=== PATIENT | male | born 1955 | race Caucasian/White ===

== ENCOUNTER → 2018-09-07 | Day surgery (SDC) | payer MEDICAID, OTHER ==
[~2018-09-07] MED LIST: FLUMAZENIL 0.5 MG/5 ML MDV IVP PRN; IOPAMIDOL (ISOVUE-300) 100 ML BTL ONE; LIDOCAINE 1% 300 MG/30 ML SDV ONE; MEPERIDINE 25 MG/ML SYR IVP PRN; MIDAZOLAM 2 MG/2 ML VIAL IVP PRN; NALOXONE HCL 0.4 MG/ML INJ IVP PRN; NS 1,000 ML IV ONE; ONDANSETRON 4 MG/2 ML VIAL IVP PRN; OXYCODONE/APAP 5/325 TAB PO PRN; fentaNYL 100 MCG/2 ML INJ IVP PRN; hydrALAZINE 20 MG/ML VIAL IVP ONE; hydrALAZINE 20 MG/ML VIAL ONE
[2018-09-07 09:42] LABS: INR 1.14 (0.83-1.16); PROTIME(PATIENT) 14.8 SEC (12.0-15.0)
--- NOTE | 2018-09-07 11:19 | PDPROPOC ---
Sedation Plan of Care Sedation Plan of Care: vital signs stable, mental status noted, patient educated of risks, benefits, alternatives, patient can tolerate sedation ASA Classification: ASA 2 Planned drugs: fentanyl, midazolam Mallampati Score: Class 2 Mallampati Reference Image: Patient passed 3-3-2 rule?: Yes
--- NOTE | 2018-09-07 11:19 | PDRADPRE ---
Radiology History & Physical Indication for procedure: cancer (Plan for Y90 mapping. Extensive discussion on renal failure following contrast administration. Patient understands risk of dialysis, and we will hydrate and minimze contrast dose as much as possible. Patient agrees benefits outweigh risks of nephrotoxic contrast.) Home medications: Aspirin [Aspirin 81mg (*)] 81 mg PO DAILY 05/15/15 [Last Taken 09/03/18] Metoprolol Tartrate [Lopressor 25 mg (*)] 12.5 mg PO BID 05/15/15 [Last Taken ] Metformin HCl [Metformin 1000 mg] 1,000 mg PO 11/19/15 [Last Taken 09/05/18] Amlodipine Besylate 10 mg DAILY 09/07/18 [Last Taken 09/05/18] traMADol 25 mg PO PRN PRN 09/07/18 [Last Taken 09/07/18] Allergies/Adverse Reactions: No Known Allergies Allergy (Unverified 09/07/18 09:08) Mental status: A&Ox3 Heart exam: regular rate and rhythm Lungs exam: clear to auscultation Mallampati Score: Class 2
--- NOTE | 2018-09-07 12:51 | PDRADPN ---
Radiology Procedure Note Date of Procedure: 09/07/18 Radiologist: Martin Farmer Anesthesia: IV Sedation Pre-op Diagnosis: mCRC Post-op Diagnosis: mCRC Indication: mCRC liver dominant metastases Procedure: Y90 mapping Finding(s): Coil embolization GDA covering right gastric artery origin. Minimal contrast used (less than 20 mL). Please see separately dictated radiology report for further details. Inf/Abcess present in the surg proc area at time of surgery?: No
[2018-09-07 12:57] VITALS: BP 147/87
== END ==
LOC: FIMAGING 08:24
PROVIDERS: ATTEND Radiology Vascular & Interventional Radiology
DX: C18.9 Malignant neoplasm of colon, unspecified (principal); C78.7 Secondary malignant neoplasm of liver and intrahepatic bile duct
CPT/HCPCS: 36247; 37243; 75726; 76937; 78201; 99152; 99153; A9540; C1769; C1760; J0360; J1642; J1644; J2250; J2310; J3010; Q9967

== ENCOUNTER → 2018-09-21 | Day surgery (SDC) | payer MEDICAID, OTHER ==
[~2018-09-21] MED LIST changes: +D5W 250 ML BAG IV ONE; +GLUCAGON HCL 1 MG VIAL IVP PRN; -LIDOCAINE 1% 300 MG/30 ML SDV ONE; -ONDANSETRON 4 MG/2 ML VIAL IVP PRN; -OXYCODONE/APAP 5/325 TAB PO PRN; +PANTOPRAZOLE SODIUM 40 MG VIAL IVP ONE; -hydrALAZINE 20 MG/ML VIAL IVP ONE; -hydrALAZINE 20 MG/ML VIAL ONE; +methylPREDNISolone SOD SUCC 125 MG/2 ML VIAL IVP ONE
[2018-09-21 08:08] VITALS: BP 141/79
[2018-09-21 08:42] LABS: INR 1.13 (0.83-1.16); PROTIME(PATIENT) 14.7 SEC (12.0-15.0)
--- NOTE | 2018-09-21 09:03 | PDRADPRE ---
Radiology History & Physical Indication for procedure: cancer (mCRC Y90 right lobe; Awaiting labs prior to procedure to ensure adequate liver function) Home medications: Aspirin [Aspirin 81mg (*)] 81 mg PO DAILY 05/15/15 [Last Taken 09/03/18] Metoprolol Tartrate [Lopressor 25 mg (*)] 12.5 mg PO BID 05/15/15 [Last Taken ] Metformin HCl [Metformin 1000 mg] 1,000 mg PO 11/19/15 [Last Taken 09/05/18] Amlodipine Besylate 10 mg DAILY 09/07/18 [Last Taken 09/21/18] traMADol 25 mg PO PRN PRN 09/07/18 [Last Taken 09/16/18] Allergies/Adverse Reactions: No Known Allergies Allergy (Verified 09/21/18 08:08) Mental status: A&Ox3 Heart exam: regular rate and rhythm Lungs exam: clear to auscultation Mallampati Score: Class 2
--- NOTE | 2018-09-28 16:52 | PDRADPN ---
Radiology Procedure Note Date of Procedure: 09/28/18 Radiologist: Martin Farmer Anesthesia: Other (Specify) (NONE) Pre-op Diagnosis: mCRC Post-op Diagnosis: mCRC Indication: mCRC; liver mets Procedure: Evaluation of the vascular system was performed utilizing NASCET criteria. Finding(s): Evaluation of the vascular system was performed utilizing NASCET criteria. Inf/Abcess present in the surg proc area at time of surgery?: No
== END ==
LOC: FIMAGING 07:24
PROVIDERS: ATTEND Radiology Vascular & Interventional Radiology
DX: C18.9 Malignant neoplasm of colon, unspecified (principal); C78.7 Secondary malignant neoplasm of liver and intrahepatic bile duct; Z53.09 Procedure and treatment not carried out because of other contraindication
CPT/HCPCS: J1200; J1642; J1644; J2250; J2930; J3010; Q9967

== ENCOUNTER 2018-09-22 21:43 | Inpatient (IN) | payer MEDICAID ==
[2018-09-22] MEDS ORDERED: NS 1,000 ML IV ONE (22:20)
[2018-09-22] MEDS ORDERED: HYDROmorphONE/DILAUDID 2 MG/ML INJ IVP ONE (22:20)
[2018-09-22] MEDS ORDERED: ONDANSETRON 4 MG/2 ML VIAL IVP ONE (22:20)
--- NOTE | 2018-09-22 22:22 | EDPHY ---
H & P Smoking Status: Never smoked Time Seen by Provider: 09/22/18 22:05 HPI/ROS: CHIEF COMPLAINT: Abdominal pain HISTORY OF PRESENT ILLNESS: 63-year-old man with history of rectal cancer and liver mets presents with worsening abdominal pain since this morning. He states it is generalized, worse since 9:00 a.m., associated with severe nausea. He took 750 mg oral tramadol at home without relief. No diarrhea and no fever or chills. No urinary symptoms. REVIEW OF SYSTEMS: Eye: no change in vision ENT: no sore throat Cardiac: no chest pain or syncope Pulmonary: no cough or SOB Abdomen: HPI Musculoskeletal: no back pain Skin: no rash Neuro: no headache Constitutional: no fever : no urinary symptoms Not sleeping well. A comprehensive 10 point review of systems is otherwise negative aside from elements mentioned in the history of present illness. PAST MEDICAL HISTORY: Includes rectal cancer with liver Mets, right knee replacement, diabetes, IgA nephropathy with baseline creatinine around 3 Social history: Here with his family including daughter and General Appearance: Alert and conversant, cooperative. Eyes: Scleral icterus ENT, Mouth: Normal mucous membranes. Respiratory: Normal respiratory effort, breath sounds equal, lungs are clear to auscultation. Cardiovascular: Regular rate and rhythm. Gastrointestinal: Generalized abdominal tenderness especially in the epigastrium and right upper quadrant without rebound or guarding. Neurological: Alert, face symmetric, normal motor and sensory in extremities. Skin: Warm and dry, no rashes. Musculoskeletal: No peripheral edema. Psychiatric: Not agitated. Emergency Department course/MDM: Dilaudid 1 mg IV and Zofran 4 mg IV. Labs to include CBC chemistry LFTs and lipase. Protime as well. CT scanning without IV contrast because of chronically elevated creatinine. Will require admission. Differential considered including but not limited to hepatitis, pain from cancer , bacterial peritonitis with ascites, pancreatitis, bowel obstruction. 2305: CT per Dr. Cueva shows liver Mets, minimal peritoneal fluid, unlikely to be SBP, no perforation or bowel obstruction. Discussed with admitting hospitalist, signed out to Dr. Jacobson with labs pending. Patient much better after pain medication. WBC noted, no dilated ducts on CT, likely reactive given elevated lipase. (Renetta Norton) Constitutional: Initial Vital Signs Temperature (C) 36.4 C 09/22/18 21:50 Heart Rate 78 09/22/18 21:50 Respiratory Rate 18 09/22/18 21:50 Blood Pressure 145/79 H 09/22/18 21:50 O2 Sat (%) 98 09/22/18 21:50 O2 Delivery Mode Room Air Allergies/Adverse Reactions: capecitabine [From Xeloda] Allergy (Verified 09/22/18 21:48) Home Medications: Medication Instructions Recorded Metoprolol Tartrate [Lopressor 25 12.5 mg PO BID 05/15/15 mg (*)] Metformin HCl [Metformin 1000 mg] 1,000 mg PO 11/19/15 Amlodipine Besylate 10 mg DAILY 09/07/18 traMADol 25 mg PO PRN PRN 09/07/18 Medical Decision Making - Diagnostics Imaging: Discussed imaging studies w/ needle grader Radiologist Consult/Admit Bed Type: [facility] - Diagnostics Imaging Results: Imaging Impressions Abdomen/Pelvis CT 09/22/18 22:20 Impression: 1. Diffuse hepatic metastasis throughout the right and left lobes of the liver. 2. Minimal ascites in the upper quadrants and pelvis, insufficient for paracentesis. 3. Constipation without evidence of bowel obstruction, pneumoperitoneum, or focal abscess. Findings and recommendations discussed with Emergency Department physician, RENETTA NORTON at 23:00 hour, 09/22/2018. Final report concurs with initial preliminary interpretation. Attention: This CT examination is specifically designed to evaluate patients who are clinically suspected of having acute obstructive uropathy. This examination does not use radiographic contrast, and as such, provides only a limited evaluation of the abdomen, pelvis and retroperitoneum. If there is further clinical suspicion for pathological conditions other than obstructive uropathy, a complete CT evaluation of the abdomen and pelvis utilizing intravenous, oral, and rectal contrast should be considered. Differential Diagnosis: Differential considered including but not limited to pancreatitis, hepatitis, bowel obstruction, bacterial peritonitis with ascites (Renetta Norton) Other Provider: [address] Norton pending laboratory evaluation results. Patient labs noted by Dr. Mccarty. Patient be admitted. (Andrey Jacobson) - Data Points Laboratory Results: Laboratory Results 09/22/18 22:35 09/22/18 22:35 09/22/18 09/22/18 09/22/18 22:35 22:35 22:35 WBC 17.85 10^3/uL H 10^3/uL (3.80-9.50) RBC 2.43 10^6/uL L 10^6/uL (4.40-6.38) Hgb 7.6 g/dL L g/dL (13.7-17.5) Hct 23.2 % L % (40.0-51.0) MCV 95.5 fL fL (81.5-99.8) MCH 31.3 pg pg (27.9-34.1) MCHC 32.8 g/dL g/dL (32.4-36.7) RDW 18.2 % H % (11.5-15.2) Plt Count 298 10^3/uL 10^3/uL (150-400) MPV 10.5 fL fL (8.7-11.7) Neut % (Auto) 89.5 % H % (39.3-74.2) Lymph % (Auto) 1.7 % L % (15.0-45.0) Lee % (Auto) 7.8 % % (4.5-13.0) Eos % (Auto) 0.1 % L % (0.6-7.6) Baso % (Auto) 0.1 % L % (0.3-1.7) Nucleat RBC Rel Count 0.0 % % (0.0-0.2) Absolute Neuts (auto) 15.98 10^3/uL H 10^3/uL (1.70-6.50) Absolute Lymphs (auto) 0.31 10^3/uL L 10^3/uL (1.00-3.00) Absolute Monos (auto) 1.39 10^3/uL H 10^3/uL (0.30-0.80) Absolute Eos (auto) 0.01 10^3/uL L 10^3/uL (0.03-0.40) Absolute Basos (auto) 0.01 10^3/uL L 10^3/uL (0.02-0.10) Absolute Nucleated RBC 0.00 10^3/uL 10^3/uL (0-0.01) Immature Gran % 0.8 % % (0.0-1.1) Seg Neutrophils % 96.0 % % Band Neutrophils % 0.0 % % Lymphocytes % 1.0 % % Monocytes % 3.0 % % Eosinophils % 0.0 % % Basophils % 0.0 % % Metamyelocytes % 0.0 % % Myelocytes % 0.0 % % Promyelocytes % 0.0 % % Blast Cells % 0.0 % % Immature Gran # 0.15 10^3/uL H 10^3/uL (0.00-0.10) Absolute Seg Neuts 17.14 10^3/uL H 10^3/uL (1.70-6.50) Absolute Band Neuts 0.00 10^3/uL 10^3/uL (0.00-0.70) Absolute Lymphocytes 0.18 10^3/uL L 10^3/uL (1.00-3.00) Absolute Monocytes 0.54 10^3/uL 10^3/uL (0.30-0.80) Absolute Eosinophils 0.00 10^3/uL L 10^3/uL (0.03-0.40) Absolute Basophils 0.00 10^3/uL L 10^3/uL (0.02-0.10) Absolute Metamyelocyte 0.00 10^3/mL 10^3/mL (0.00-0.00) Absolute Myelocytes 0.00 10^3/mL 10^3/mL (0.00-0.00) Absolute Promyelocytes 0.00 10^3/uL 10^3/uL (0.00-0.00) Absolute Plasma Cells 0.00 10^3/uL 10^3/uL (0.00-0.00) Nucleated RBCs 0 /100 WBC /100 WBC (0-0) Absolute Blast Cells 0.00 10^3/uL 10^3/uL (0.00-0.00) Plasma Cells % 0.0 % % Platelet Estimate ADEQUATE (ADEQ) Oval Macrocytes 3+ H PT 14.9 SEC SEC (12.0-15.0) INR 1.15 (0.83-1.16) APTT 29.5 SEC SEC (23.0-38.0) Sodium 134 mEq/L L mEq/L (135-145) Potassium 4.7 mEq/L mEq/L (3.3-5.0) Chloride 104 mEq/L mEq/L (97-110) Carbon Dioxide 15 mEq/l L mEq/l (22-31) Anion Gap 15 mEq/L H mEq/L (6-14) BUN 60 mg/dL H mg/dL (7-23) Creatinine 3.6 mg/dL H mg/dL (0.7-1.3) Estimated GFR 17 Glucose 115 mg/dL H mg/dL (70-100) Calcium 8.3 mg/dL L mg/dL (8.5-10.4) Total Bilirubin 6.5 mg/dL H mg/dL (0.1-1.4) Conjugated Bilirubin 5.8 mg/dL H mg/dL (0.0-0.5) Unconjugated Bilirubin 0.7 mg/dL mg/dL (0.0-1.1) AST 160 IU/L H IU/L (17-59) ALT 78 IU/L H IU/L (21-72) Alkaline Phosphatase 1089 IU/L H IU/L (38-126) Total Protein 6.5 g/dL g/dL (6.3-8.2) Albumin 3.0 g/dL L g/dL (3.5-5.0) Lipase 6720 IU/L H IU/L (23-300) Medications Given: Sodium Chloride (Ns) 1,000 mls @ 100 mls/hr IV CONT MARY Stop: 03/21/19 23:44 Last Admin: 09/23/18 02:18 Dose: 1,000 mls Discontinued Medications Hydromorphone HCl (Dilaudid) 1 mg IVP EDNOW ONE Stop: 09/22/18 22:21 Last Admin: 09/22/18 22:44 Dose: 1 mg Sodium Chloride (Ns) 1,000 mls @ 0 mls/hr IV EDNOW ONE; Wide Open PRN Reason: Protocol Stop: 09/22/18 22:21 Last Admin: 09/22/18 22:42 Dose: 1,000 mls Ondansetron HCl (Zofran) 4 mg IVP EDNOW ONE Stop: 09/22/18 22:21 Last Admin: 09/22/18 22:42 Dose: 4 mg Departure - Departure Disposition: [facility] Inpatient Acute Clinical Impression: Abdominal pain, Pancreatitis Condition: Good
[2018-09-22 22:42] LABS: PLATELET COUNT 298 10^3/uL (150-400)
[2018-09-22 23:20] LABS: INR 1.15 (0.83-1.16); PROTIME(PATIENT) 14.9 SEC (12.0-15.0)
[2018-09-22] MEDS ORDERED: ONDANSETRON DISINTEGRATING 4 MG TAB PO PRN (23:36)
[2018-09-22] MEDS ORDERED: ACETAMINOPHEN 325 MG TAB PO PRN (23:36)
[2018-09-22] MEDS ORDERED: ONDANSETRON 4 MG/2 ML VIAL IVP PRN (23:36)
[2018-09-23] MEDS ORDERED: HYDROmorphONE/DILAUDID 1 MG/ML INJ IVP PRN (00:06)
--- NOTE | 2018-09-23 00:56 | PDGENHP ---
History and Physical - Chief Complaint Abdominal pain - History of Present Illness 63 yo M w/ hx of metastatic rectal CA, CAD, HTN, and CKD presents with abdominal pain. The patient developed severe abdominal pain today. He describes this as diffuse but mostly along the lower quadrants. He has been having some soft, frequent stools as well. These have been yellowish in color. He was scheduled for radiation bead placement to liver metastases yesterday but the procedure was aborted due to elevated bilirubin. This is a new problem for him and is confirmed on laboratory work-up today. He was told by IR doc yesterday that he may need a stent. CT scan in the ED revealed known metastases but no obstruction, perforation, or significant ascites. He feels much better after receiving Dilaudid in the ED. He was initially diagnosed with rectal CA in 2014. He undergone surgery, radiation, and chemotherapy for this. He follows with Dr. Mando Rodriguez of [facility]. Case discussed with ED physician Dr. Norton; records reviewed and summarized above. History Information - Allergies/Home Medication List Allergies/Adverse Reactions: capecitabine [From Xeloda] Allergy (Verified 09/22/18 21:48) Home Medications: Metoprolol Tartrate [Lopressor 25 mg (*)] 12.5 mg PO BID 05/15/15 [Last Taken ] Metformin HCl [Metformin 1000 mg] 1,000 mg PO 11/19/15 [Last Taken 09/05/18] Amlodipine Besylate 10 mg DAILY 09/07/18 [Last Taken 09/21/18] traMADol 25 mg PO PRN PRN 09/07/18 [Last Taken 09/16/18] I have personally reviewed and updated: family history, medical history - Past Medical History coronary artery disease, cancer, hypertension Additional medical history: CKD 2/2 IgA nephropathy - Surgical History Reports: colectomy - Family History Positive for: cancer - Social History Smoking Status: Never smoked Review of Systems Review of Systems: ROS: 10pt was reviewed & negative except for what was stated in HPI & below Physical Exam Physical Exam: Temp Pulse Resp BP Pulse Ox 36.4 C 78 18 145/79 H 98 09/22/18 21:50 09/22/18 21:50 09/22/18 21:50 09/22/18 21:50 09/22/18 21:50 Constitutional: chronically ill appearing, uncomfortable Eyes: PERRL, icteric sclera Ears, Nose, Mouth, Throat: moist mucous membranes, no oral mucosal ulcers Cardiovascular: regular rate and rhythym, no murmur, rub, or gallop Respiratory: no respiratory distress, clear to auscultation Gastrointestinal: tenderness (Diffuse), distension, No guarding, No rebound Skin: warm, other (Icterus noted) Musculoskeletal: full muscle strength, no muscle tenderness Neurologic: AAOx3, CN II-XII Intact Psychiatric: interacting appropriately, not anxious Lab Data & Imaging Review 09/22/18 22:35 09/22/18 22:35 WBC 17.85 10^3/uL (3.80-9.50) H 09/22/18 22:35 RBC 2.43 10^6/uL (4.40-6.38) L 09/22/18 22:35 Hgb 7.6 g/dL (13.7-17.5) L 09/22/18 22:35 Hct 23.2 % (40.0-51.0) L 09/22/18 22:35 MCV 95.5 fL (81.5-99.8) 09/22/18 22:35 MCH 31.3 pg (27.9-34.1) 09/22/18 22:35 MCHC 32.8 g/dL (32.4-36.7) 09/22/18 22:35 RDW 18.2 % (11.5-15.2) H 09/22/18 22:35 Plt Count 298 10^3/uL (150-400) 09/22/18 22:35 MPV 10.5 fL (8.7-11.7) 09/22/18 22:35 Neut % (Auto) 89.5 % (39.3-74.2) H 09/22/18 22:35 Lymph % (Auto) 1.7 % (15.0-45.0) L 09/22/18 22:35 Traill % (Auto) 7.8 % (4.5-13.0) 09/22/18 22:35 Eos % (Auto) 0.1 % (0.6-7.6) L 09/22/18 22:35 Baso % (Auto) 0.1 % (0.3-1.7) L 09/22/18 22:35 Nucleat RBC Rel Count 0.0 % (0.0-0.2) 09/22/18 22:35 Absolute Neuts (auto) 15.98 10^3/uL (1.70-6.50) H 09/22/18 22:35 Absolute Lymphs (auto) 0.31 10^3/uL (1.00-3.00) L 09/22/18 22:35 Absolute Monos (auto) 1.39 10^3/uL (0.30-0.80) H 09/22/18 22:35 Absolute Eos (auto) 0.01 10^3/uL (0.03-0.40) L 09/22/18 22:35 Absolute Basos (auto) 0.01 10^3/uL (0.02-0.10) L 09/22/18 22:35 Absolute Nucleated RBC 0.00 10^3/uL (0-0.01) 09/22/18 22:35 Immature Gran % 0.8 % (0.0-1.1) 09/22/18 22:35 Seg Neutrophils % 96.0 % 09/22/18 22:35 Band Neutrophils % 0.0 % 09/22/18 22:35 Lymphocytes % 1.0 % 09/22/18 22: Monocytes % 3.0 % 09/22/18 22:35 Eosinophils % 0.0 % 09/22/18 22:35 Basophils % 0.0 % 09/22/18 22:35 Metamyelocytes % 0.0 % 09/22/18:35 Myelocytes % 0.0 % 09/22/18:35 Promyelocytes % 0.0 % 09/22/18 22:35 Blast Cells % 0.0 % 09/22/18 22:35 Immature Gran # 0.15 10^3/uL (0.00-0.10) H 09/22/18 22:35 Absolute Seg Neuts 17.14 10^3/uL (1.70-6.50) H 09/22/18 22:35 Absolute Band Neuts 0.00 10^3/uL (0.00-0.70) 09/22/18 22:35 Absolute Lymphocytes 0.18 10^3/uL (1.00-3.00) L 09/22/18 22:35 Absolute Monocytes 0.54 10^3/uL (0.30-0.80) 09/22/18 22:35 Absolute Eosinophils 0.00 10^3/uL (0.03-0.40) L 09/22/18 22:35 Absolute Basophils 0.00 10^3/uL (0.02-0.10) L 09/22/18 22:35 Absolute Metamyelocyte 0.00 10^3/mL (0.00-0.00) 09/22/18 22:35 Absolute Myelocytes 0.00 10^3/mL (0.00-0.00) 09/22/18 22:35 Absolute Promyelocytes 0.00 10^3/uL (0.00-0.00) 09/22/18 22:35 Absolute Plasma Cells 0.00 10^3/uL (0.00-0.00) 09/22/18 22:35 Nucleated RBCs 0 /100 WBC (0-0) 09/22/18 22: Absolute Blast Cells 0.00 10^3/uL (0.00-0.00) 09/22/18 22:35 Plasma Cells % 0.0 % 09/22/18 22:35 Platelet Estimate ADEQUATE (ADEQ) 09/22/18 22:35 Oval Macrocytes 3+ H 09/22/18 22:35 PT 14.9 SEC (12.0-15.0) 09/22/18 22:35 INR 1.15 (0.83-1.16) 09/22/18 22:35 APTT 29.5 SEC (23.0-38.0) 09/22/18 22:35 Sodium 134 mEq/L (135-145) L 09/22/18 22:35 Potassium 4.7 mEq/L (3.3-5.0) 09/22/18 22:35 Chloride 104 mEq/L (97-110) 09/22/18 22:35 Carbon Dioxide 15 mEq/l (22-31) L 09/22/18 22:35 Anion Gap 15 mEq/L (6-14) H 09/22/18 22:35 BUN 60 mg/dL (7-23) H 09/22/18 22:35 Creatinine 3.6 mg/dL (0.7-1.3) H 09/22/18 22:35 Estimated GFR 17 09/22/18 22:35 Glucose 115 mg/dL (70-100) H 09/22/18 22:35 Calcium 8.3 mg/dL (8.5-10.4) L 09/22/18 22:35 Total Bilirubin 6.5 mg/dL (0.1-1.4) H 09/22/18 22:35 Conjugated Bilirubin 5.8 mg/dL (0.0-0.5) H 09/22/18 22:35 Unconjugated Bilirubin 0.7 mg/dL (0.0-1.1) 09/22/18 22:35 AST 160 IU/L (17-59) H 09/22/18 22:35 ALT 78 IU/L (21-72) H 09/22/18 22:35 Alkaline Phosphatase 1089 IU/L (38-126) H 09/22/18 22:35 Total Protein 6.5 g/dL (6.3-8.2) 09/22/18 22:35 Albumin 3.0 g/dL (3.5-5.0) L 09/22/18 22:35 Lipase 6720 IU/L (23-300) H 09/22/18 22:35 Imaging Review: Imaging Impressions Abdomen/Pelvis CT 09/22/18 22:20 Impression: 1. Diffuse hepatic metastasis throughout the right and left lobes of the liver. 2. Minimal ascites in the upper quadrants and pelvis, insufficient for paracentesis. 3. Constipation without evidence of bowel obstruction, pneumoperitoneum, or focal abscess. Findings and recommendations discussed with Emergency Department physician, RENETTA NORTON at 23:00 hour, 09/22/2018. Final report concurs with initial preliminary interpretation. Attention: This CT examination is specifically designed to evaluate patients who are clinically suspected of having acute obstructive uropathy. This examination does not use radiographic contrast, and as such, provides only a limited evaluation of the abdomen, pelvis and retroperitoneum. If there is further clinical suspicion for pathological conditions other than obstructive uropathy, a complete CT evaluation of the abdomen and pelvis utilizing intravenous, oral, and rectal contrast should be considered. Assessment & Plan Assessment: 63 yo M w/ hx of metastatic rectal CA, CAD, HTN, and CKD presents with abdominal pain and elevated bilirubin. Plan: 1. Elevated bilirubin - LFTs abnormal in obstructive pattern; this is most likely related to obstruction from tumor burden. He denies infectious symptoms at this time although his WBC is elevated. - RUQ U/S for further evaluation - Monitor CMP - Will consult GI in the morning to consider stent placement - Low threshold for antibiotics to cover possibility of cholangitis if infectious signs of symptoms arise 2. Abdominal pain - Likely related to above, although his pain is lower quadrants and fairly acute. CT scan performed in the ED, although performed without contrast, did not reveal alternate etiology such as obstruction or perforation. The study noted minimal ascites making SBP less likely. He denies constipation although scan does reveal this. - Address likely biliary obstruction as above - Dilaudid PRN - Low threshold for antibiotics 3. Leukocytosis - Possibly reactive to biliary obstruction. he has no other infectious signs or symptoms at this time. Not enough ascitic fluid present for SBP evaluation. - Blood cultures ordered - Cholangitis coverage if worsening 4. Metastatic rectal CA - With extensive metastases to liver. He was initially diagnosed in 2014 and has had numerous treatment modalities including surgery, chemotherapy, and radiation. He follows with Dr. Mando Rodriguez. - Oncology consult in the morning 5. 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 His GFR is close to his baseline. - Gentle hydration overnight - Monitor BMP - Renally dose medications, avoid nephrotoxic agents 6. CAD - Hx of MN with 4 stents placed. No acute symptoms related to this. 7. HTN - Will hold medication in setting of acute illness, restart as indicated. Diet - NPO @ MN Code - Full Ppx - SQH noting low GFR Dispo - Admit under observation status
[2018-09-23] MEDS: NS 1,000 ML IV SCH ×3 (02:18→23:55)
[2018-09-23] MEDS: oxyCODONE IR 5 MG TAB PO PRN ×2 (05:55→22:19)
[2018-09-23] MEDS: HEPARIN 5,000 UNIT/0.5 ML INJ SC SCH ×3 (05:56→22:20)
[2018-09-23 06:48] LABS: PLATELET COUNT 232 10^3/uL (150-400)
[2018-09-23] MEDS ORDERED: ENOXAPARIN 40 MG/0.4 ML SYR SC SCH (09:00)
--- NOTE | 2018-09-23 15:25 | GCON ---
NEW PATIENT CONSULTATION. REFERRING PHYSICIAN: Blanco Gonsalez DO PRIMARY ONCOLOGIST: Dr. Clarissa Rodriguez. REASON FOR CONSULT: The patient presented with abdominal pain and rising bilirubin. HISTORY OF PRESENT ILLNESS: This is a very pleasant 63-year-old gentleman who was diagnosed with rec akira adenocarcinoma in March 2015. I believe he had liver metastasis at the time of presentation. It w as a T3 N1b M1b adenocarcinoma grade 2, KRAS wild type BRAF wild type, NRAF wild-type, MSI stable, EG FR expression unknown, mismatch repair, IHC proficient. He was initially treated with a low anterior resection in September 2015 and had an external beam radiation from March to April 2016 to the rectum a nd pelvis given concurrently with Xeloda which was interrupted due to toxicity. He was then started on FOLFOX and he received about 4 months of therapy. The oxaliplatin was held early in the summer because of increasing neuropathy. He took a break in therapy to allow for reanastomosis in May. Infusional 5-FU with leucovorin without oxaliplatin was resumed in the fall, vik nued until November 2016 when he had disease progression. At that time, he then started FOLFIRI and has been on this medication until May of 2018. Dr. Rodriguez met with him at that time and reviewed recent PET-CT that was done in June that showed a mixed response. Some of the larger lesions in the liver showed some necrosis, but also had some new lesions, felt to be an appropriate candidate for Y90 to the liver. The patient was pending Y90 early this week when he had increased abdominal pain as well as rise in t he bilirubin and was admitted. His abdominal pelvic CT done 09/22, shows diffuse hepatic metastasis throughout right and left lobes of the liver. Minimal ascites in the upper quadrants and pelvis, constipation without evidence of millie wel obstruction. He had an abdominal ultrasound which showed no cholelithiasis or biliary ductal dil atation. Extensive hepatic metastatic disease. The pancreatic head mass seen on CT imaging was not well delineated with ultrasound secondary to bowel gas. Looking back at the CT, he has nodularity in the left upper quadrant splenic hilar region suggesting peritoneal carcinomatosis. He has a fiducia l in the right peripancreatic region. He recently had an MRCP earlier today again demonstrates exten sive hepatic metastasis with large masses as detailed in the report. The confluent dominant mass in left lobe measures 10 x 8 cm and in the right lobe measures 10 x 9. He has mild scattered focal intr ahepatic biliary ductal dilatation, mild amount of ascites and small incidental gallstone. The pancr eas appears to be normal on MRCP. LABS: Today show white blood cell count of 14.6, hemoglobin 7.5, hematocrit 22.5, platelet count of 232,000, lymphocytosis predominantly neutrophilia. INR 1.1, sodium 134, BUN 56, creatinine 3.4, tota l bilirubin 5.7, conjugated bilirubin 5.1, AST 149, ALT 81, alkaline phosphatase 1030, albumin 2.7, h is lipase was 6720. REVIEW OF SYSTEMS: The patient is complaining of abdominal pain, worse when he eats. Denies shortne ss of breath or chest pain. Has been somewhat constipated but has poor p.o. intake. He does not kno w if he is passing gas. No lower extremity or upper extremity swelling. 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 SURGICAL HISTORY: Low anterior resection previously. FAMILY HISTORY: Sister of cervical cancer at age 38. SOCIAL HISTORY: Never smoked, is . accompanies him today. 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 PHYSICAL EXAM: VITAL SIGNS: Today vital signs show blood pressure 140/78, pulse of 73, respiration r ate 14, saturating 96% on room air, temperature is 36.6. GENERAL: A 63-year-old gentleman, fatigued, chronically ill-appearing and jaundiced, not in acute distress. HEENT: Scleral icterus. Oropharynx clear. HEART: Regular rate and rhythm. LUNGS: Clear anteriorly. ABDOMEN: Mild distention. Bowel sounds present but diminished, very tender to palpation especially over right upper quadrant, and ep igastrium with some minimal palpation. Does not currently have any peritoneal signs. LOWER EXTREMIT IES: No edema. NEUROLOGIC: Nonfocal. Labs and imaging as above. ASSESSMENT AND PLAN: This is a 63-year-old gentleman with stage IV rectal adenocarcinoma with diffus e metastasis to the liver, presenting with abdominal pain and hyperbilirubinemia. 1. Abdominal pain, multifactorial, likely due to liver metastasis as well as pancreatitis. Will rec eive pain medications, IV fluids and will remain n.p.o. No significant ascites to suggest SBP and no obvious cholangitis. No gallstones. 2. Hyperbilirubinemia. Largely direct due to extensive involvement of metastatic disease to the delaney er. Had MRCP which I reviewed. Will discuss with Gastroenterology and Interventional Radiology. Th e likelihood of getting a successful intrahepatic biliary stent for drainage. No areas of obstructio n amenable to internal stent at this time. 3. Stage IV rectal adenocarcinoma, primary metastasis to the liver, and has been off chemotherapy si nce May of 2018, was pending yttrium beads to the liver, which has been put on hold for hyperbilir ubinemia. Hopefully, this can be reversed so he can go forward with treatment. I feel that the panc reatitis and the abdominal pain is due largely to the metastasis themselves. He has no obvious pancr eatic mass, could be from pancreatic ductal stricture from local regional lymphadenopathy. We will c ontinue to monitor. 4. Chronic kidney disease, baseline creatinine due to IgA nephropathy. 5. Leukocytosis, multifactorial. No obvious infection. Blood culture pending. 6. Other internal medicine issues per Internal Medicine. More than 45 minutes spent with patient in multidisciplinary team discussing overall plan, reviewing imaging and labs. /[id number]/MODL
--- NOTE | 2018-09-23 16:27 | HOSPPROG ---
Hospitalist Progress Note Assessment/Plan: 63 yo M w/ hx of metastatic rectal CA, CAD, HTN, and CKD presents with abdominal pain and elevated bilirubin. Plan: 1. Elevated bilirubin - - RUQ U/S shows no ductal dilation, however patient has significant cancer burden with hepatic metastases - Monitor CMP - GI consulted this AM, recommend MRCP for further evaluation, will f/u results - Low threshold for antibiotics to cover possibility of cholangitis if infectious signs of symptoms arise 2. Abdominal pain - Likely related to above, although his pain is lower quadrants and fairly acute. CT scan performed in the ED, although performed without contrast, did not reveal alternate etiology such as obstruction or perforation. The study noted minimal ascites making SBP less likely. He denies constipation although scan does reveal this. - Pancreatitis likely given elevated Lipase to 7000, will keep NPO, continue IVF - Address likely biliary obstruction as above - Dilaudid PRN - Low threshold for antibiotics 3. Leukocytosis - Possibly reactive to biliary obstruction. he has no other infectious signs or symptoms at this time. Not enough ascitic fluid present for SBP evaluation. - Blood cultures ordered - Cholangitis coverage if worsening 4. Metastatic rectal CA - With extensive metastases to liver. He was initially diagnosed in 2014 and has had numerous treatment modalities including surgery, chemotherapy, and radiation. He follows with Dr. Mando Rodriguez. - Oncology consulted, f/u recommendations 5. 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 His GFR is close to his baseline. - Continue Gentle hydration - Monitor BMP, Cr 3.4 this AM from 3.6 on admission - Renally dose medications, avoid nephrotoxic agents 6. CAD - Hx of [place] with 4 stents placed. No acute symptoms related to this. 7. HTN - Will hold medication in setting of acute illness, restart as indicated. Diet - NPO Code - Full Ppx - SQH noting low GFR Dispo- Pending clinical course Subjective: Patiet reports abdominal pain this morning, worse with eating Objective: Vital Signs Temp Pulse Resp BP Pulse Ox 36.6 C 77 14 130/73 H 98 09/23/18 15:20 09/23/18 15:20 09/23/18 15:20 09/23/18 15:20 09/23/18 15:20 Laboratory Results 09/23/18 06:00 09/23/18 06:00 09/22/18 09/23/18 09/24/18 05:59 05:59 05:59 Intake Total 1565 Output Total 350 650 Balance 1215 -650 PT 14.9 SEC (12.0-15.0) 09/22/18 22:35 INR 1.15 (0.83-1.16) 09/22/18 22:35 - Physical Exam Constitutional: chronically ill appearing Eyes: PERRL Ears, Nose, Mouth, Throat: dry mucous membranes Cardiovascular: regular rate and rhythym Respiratory: no respiratory distress Gastrointestinal: tenderness Skin: warm Neurologic: AAOx3 Psychiatric: interacting appropriately ICD10 Worksheet Patient Problems: Problems Problem Status Onset Abdominal pain Acute Pancreatitis Acute Diabetes Acute Diarrhea due to drug Acute Mucositis due to chemotherapy Acute Rectal cancer Acute SBO (small bowel obstruction) Acute Stented coronary artery Acute
--- NOTE | 2018-09-23 17:21 | ASMTCMCOM ---
CM Note CM Note Notes: Pt admitted for abdominal pain with a history of rectal cancer, HTN, CAD and CKD. Pt was scheduled for radiation bead placement for liver metastases but was unable to receive due to abnormal labs. Therapies have been ordered but not yet evaluated. Pt lives independently with and CM spoke with her on the phone regarding family's needs. Pt already arranged palliative consult with [facility], so referral was sent to them for hospice consult, per physician recommendation. They will schedule eval for tomorrow at [facility]. D/C Plan: home with [facility] pending eval Date Signed: 09/23/2018 05:20 PM Electronically Signed By:Victorina Quinonez
[2018-09-24] MEDS: HEPARIN 5,000 UNIT/0.5 ML INJ SC SCH ×3 (05:24→21:43)
[2018-09-24 05:45] LABS: PLATELET COUNT 247 10^3/uL (150-400)
[2018-09-24] MEDS ORDERED: D50W 25 GM/50 ML SYR IVP PRN (06:10)
[2018-09-24] MEDS: NS 1,000 ML IV SCH (09:59)
--- NOTE | 2018-09-24 11:00 | PDMN ---
Medical Necessity Medical necessity: Pt meets IP criteria as of 09/23/2018 per and MCG M-250 ( pancreatitis); los > 2 mn for ongoing tx and evaluation of likely pancreatitis given elevated lipase of 7000 with abdominal pain and elevated bilirubin in the setting of metastatic rectal cancer and leukocytosis; requiring NPO status, serial labs, IV pain control, palliative care consult, hospice evaluation, and therapies.
--- NOTE | 2018-09-24 12:53 | SOAPPROG ---
SOAP Progress Note Assessment/Plan: Assessment/Plan: 63 yo gentleman w stage IV rectal ca admitted w abdominal pain and hyperbilirubinemia 1. Abd pain - multifactorial from extensive liver mets and pancreatitis cont pain contro, NPO, IVF imaging without new findings 2. Hyperbilirubinemia - mostly direct from liver mets MRCP shows no areas amenable to stenting discuss w IR and GI if external biliary drain possible as pt hoping for more therapies that require bili to be lower 3. Pancreatitis - assume from large left sided liver mets causing pancreatic ductal dilation 4. Stage IV rectal cancer - pending Y-90 to liver had [facility] to look for targeted therapies MSI stable, no BRAF mutations, no OLIVIER mutations documented recently progresses has met w hospice and discussed options 5. Leukocytosis - stable no peritoneal signs today 6. CKD and other medical issues - per IM 09/24/18 12:50 09/24/18 12:54 09/24/18 12:56 09/24/18 12:58 Subjective: No acute events no new issues Objective: Vital Signs Temp Pulse Resp BP Pulse Ox 36.4 C 88 16 152/89 H 98 09/24/18 12:00 09/24/18 12:00 09/24/18 12:00 09/24/18 12:00 09/24/18 12:00 Laboratory Results 09/24/18 05:22 09/24/18 05:22 09/23/18 09/24/18 09/25/18 05:59 05:59 05:59 Intake Total 700 150 Output Total 300 475 Balance 400 -325 PT 14.9 SEC (12.0-15.0) 09/22/18 22:35 INR 1.15 (0.83-1.16) 09/22/18 22:35 Gen - chronically ill appearing HEENT - mild icterus CV - RRR Lungs - CTA Abd - distended, BS+, TTP RUQ and epigastrium, no rebound Ext - no sig edema ICD10 Worksheet Patient Problems: Problems Problem Status Onset Abdominal pain Acute Pancreatitis Acute Diabetes Acute Diarrhea due to drug Acute Mucositis due to chemotherapy Acute Rectal cancer Acute SBO (small bowel obstruction) Acute Stented coronary artery Acute
[2018-09-24] MEDS: oxyCODONE IR 5 MG TAB PO PRN (12:58)
[2018-09-24] MEDS: METOPROLOL SUCCINATE XR 25 MG TAB PO SCH (13:01)
--- NOTE | 2018-09-24 14:45 | HOSPPROG ---
Hospitalist Progress Note Assessment/Plan: 63 yo M w/ hx of metastatic rectal CA, CAD, HTN, and CKD presents with abdominal pain and elevated bilirubin. Plan: 1. Elevated bilirubin - - RUQ U/S shows no ductal dilation, however patient has significant cancer burden with hepatic metastases - Monitor CMP - GI consulted, recommended MRCP which did not show anything stentable per GI - Discussed with oncology, Dr. Armendariz this AM, she recommended consulting IR for possible extrahepatic drain placement, they reviewed images, I discussed with Dr. Mcgill, who does not believe he would be able to place a stent in setting of large metastatic tumor burden - Low threshold for antibiotics to cover possibility of cholangitis if infectious signs of symptoms arise 2. Abdominal pain - Pancreatitis likely given elevated Lipase to 7000, will advance diet as tolerated, continue IVF - Address likely biliary obstruction as above - Dilaudid PRN - Low threshold for antibiotics 3. Leukocytosis - Possibly reactive to biliary obstruction. he has no other infectious signs or symptoms at this time. Not enough ascitic fluid present for SBP evaluation. - Blood cultures ordered- NGTD - Cholangitis coverage if worsening 4. Metastatic rectal CA - With extensive metastases to liver. He was initially diagnosed in 2014 and has had numerous treatment modalities including surgery, chemotherapy, and radiation. He follows with Dr. Mando Rodriguez. - Oncology consulted 5. 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 His GFR is close to his baseline. - Continue Gentle hydration - Monitor BMP, Cr 3.2 this AM from 3.6 on admission - Renally dose medications, avoid nephrotoxic agents 6. CAD - Hx of [place] with 4 stents placed. No acute symptoms related to this. 7. HTN - Will hold medication in setting of acute illness, restart as indicated. Diet - NPO Code - Full Ppx - SQH noting low GFR Dispo- Pending clinical course Subjective: Patient reports mild improvement in abdominal pain this morning Objective: Vital Signs Temp Pulse Resp BP Pulse Ox 36.4 C 88 16 152/89 H 98 09/24/18 12:00 09/24/18 12:00 09/24/18 12:00 09/24/18 12:00 09/24/18 12:00 Laboratory Results 09/24/18 05:22 09/24/18 05:22 09/23/18 09/24/18 09/25/18 05:59 05:59 05:59 Intake Total 700 150 Output Total 300 475 Balance 400 -325 PT 14.9 SEC (12.0-15.0) 09/22/18 22:35 INR 1.15 (0.83-1.16) 09/22/18 22:35 - Physical Exam Constitutional: chronically ill appearing Eyes: icteric sclera Ears, Nose, Mouth, Throat: moist mucous membranes Cardiovascular: regular rate and rhythym Respiratory: no respiratory distress Gastrointestinal: tenderness Skin: warm Neurologic: AAOx3 Psychiatric: interacting appropriately ICD10 Worksheet Patient Problems: Problems Problem Status Onset Abdominal pain Acute Pancreatitis Acute Diabetes Acute Diarrhea due to drug Acute Mucositis due to chemotherapy Acute Rectal cancer Acute SBO (small bowel obstruction) Acute Stented coronary artery Acute
--- NOTE | 2018-09-24 15:49 | ASMTCMCOM ---
CM Note CM Note Notes: Spoke with pt in the room. Pt and Rocio had a meeting with [facility] RNs to learn about hospice and have opted to open with [facility]. Anticipated discharge 1 -2 days. CM to follow. D/C Plan: [facility] Date Signed: 09/24/2018 03:48 PM Electronically Signed By:Victorina Quinonez
[2018-09-25] MEDS: NS 1,000 ML IV SCH ×2 (04:33→16:56)
[2018-09-25] MEDS: HEPARIN 5,000 UNIT/0.5 ML INJ SC SCH ×3 (04:39→21:23)
[2018-09-25] MEDS: METOPROLOL SUCCINATE XR 25 MG TAB PO SCH (09:10)
--- NOTE | 2018-09-25 12:43 | SOAPPROG ---
SOAP Progress Note Assessment/Plan: Assessment:SOAP Progress Note Assessment/Plan: Assessment/Plan: 63 yo gentleman w stage IV rectal ca admitted w abdominal pain and hyperbilirubinemia 1. Abd pain - multifactorial from extensive liver mets and pancreatitis cont pain contro, NPO, IVF imaging without new findings 2. Hyperbilirubinemia - mostly direct from liver mets MRCP shows no areas amenable to stenting discuss w IR and GI if external biliary drain possible as pt hoping for more therapies that require bili to be lower 3. Pancreatitis - assume from large left sided liver mets causing pancreatic ductal dilation, less pain today. trying to eat lunch 4. Stage IV rectal cancer - pending Y-90 to liver, but currently bili too high had [facility] to look for targeted therapies MSI stable, no BRAF mutations, no OLIVIER mutations documented recently progresses has met w hospice and discussed options 5. Leukocytosis - stable no peritoneal signs today 6. CKD and other medical issues - per IM Patient hoping for discharge tomorrow. Discussed clinical trials. Options limited. Plan: 09/25/18 12:43 09/25/18 12:57 Subjective: currently no pain, slow with the eating Objective: Vital Signs Temp Pulse Resp BP Pulse Ox 36.7 C 75 14 122/66 H 95 09/25/18 12:00 09/25/18 12:00 09/25/18 12:00 09/25/18 12:00 09/25/18 12:00 Laboratory Results 09/25/18 04:35 09/25/18 04:35 09/24/18 09/25/18 09/26/18 05:59 05:59 05:59 Intake Total 700 1490 100 Output Total 300 775 275 Balance 400 715 -175 PT 14.9 SEC (12.0-15.0) 09/22/18 22:35 INR 1.15 (0.83-1.16) 09/22/18 22:35 Physical Exam - Physical Exam General Appearance: alert Respiratory: lungs clear Abdomen: soft ICD10 Worksheet Patient Problems: Problems Problem Status Onset Abdominal pain Acute Pancreatitis Acute Diabetes Acute Diarrhea due to drug Acute Mucositis due to chemotherapy Acute Rectal cancer Acute SBO (small bowel obstruction) Acute Stented coronary artery Acute
--- NOTE | 2018-09-25 13:19 | HOSPPROG ---
Hospitalist Progress Note Assessment/Plan: 63 yo M w/ hx of metastatic rectal CA, CAD, HTN, and CKD presents with abdominal pain and elevated bilirubin. Plan: 1. Elevated bilirubin - - RUQ U/S shows no ductal dilation, however patient has significant cancer burden with hepatic metastases - Monitor CMP - GI consulted, recommended MRCP which did not show anything stentable per GI - Discussed with oncology, Dr. Armendariz, who recommended consulting IR for possible extrahepatic drain placement, they reviewed images, I discussed with Dr. Mcgill, who does not believe he would be able to place a stent in setting of large metastatic tumor burden - Low threshold for antibiotics to cover possibility of cholangitis if infectious signs of symptoms arise 2. Abdominal pain/Pancreatitis - Pancreatitis likely given elevated Lipase to 7000, will advance diet as tolerated, continue IVF - Address likely biliary obstruction as above 3. Leukocytosis - Possibly reactive to biliary obstruction. he has no other infectious signs or symptoms at this time. Not enough ascitic fluid present for SBP evaluation. - Blood cultures ordered- NGTD - Cholangitis coverage if worsening 4. Metastatic rectal CA - With extensive metastases to liver. He was initially diagnosed in 2014 and has had numerous treatment modalities including surgery, chemotherapy, and radiation. He follows with Dr. Mando Rodriguez. - Oncology consulted and following 5. 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 His GFR is close to his baseline. - Continue Gentle hydration - Monitor BMP, Cr 3.2 this AM from 3.6 on admission - Renally dose medications, avoid nephrotoxic agents 6. CAD - Hx of [place] with 4 stents placed. No acute symptoms related to this. 7. HTN - Will hold medication in setting of acute illness, restart as indicated. Diet - NPO Code - Full Ppx - SQH noting low GFR Dispo- Pending clinical course Subjective: Patient reports no abdominal pain this morning Objective: Vital Signs Temp Pulse Resp BP Pulse Ox 36.7 C 75 14 122/66 H 95 09/25/18 12:00 09/25/18 12:00 09/25/18 12:00 09/25/18 12:00 09/25/18 12:00 Laboratory Results 09/25/18 04:35 09/25/18 04:35 09/24/18 09/25/18 09/26/18 05:59 05:59 05:59 Intake Total 700 1490 100 Output Total 300 775 275 Balance 400 715 -175 PT 14.9 SEC (12.0-15.0) 09/22/18 22:35 INR 1.15 (0.83-1.16) 09/22/18 22:35 - Physical Exam Constitutional: chronically ill appearing Eyes: icteric sclera Ears, Nose, Mouth, Throat: moist mucous membranes Cardiovascular: regular rate and rhythym Respiratory: no respiratory distress Gastrointestinal: soft, non-tender abdomen, distension Skin: warm Musculoskeletal: generalized weakness Neurologic: AAOx3 Psychiatric: interacting appropriately ICD10 Worksheet Patient Problems: Problems Problem Status Onset Abdominal pain Acute Pancreatitis Acute Diabetes Acute Diarrhea due to drug Acute Mucositis due to chemotherapy Acute Rectal cancer Acute SBO (small bowel obstruction) Acute Stented coronary artery Acute
[2018-09-26] MEDS: NS 1,000 ML IV SCH (06:02)
[2018-09-26] MEDS: HEPARIN 5,000 UNIT/0.5 ML INJ SC SCH (06:02)
[2018-09-26 08:16] VITALS: BP 158/81
[2018-09-26] MEDS: METOPROLOL SUCCINATE XR 25 MG TAB PO SCH (08:58)
--- NOTE | 2018-09-26 09:30 | SOAPPROG ---
SOAP Progress Note Assessment/Plan: Assessment:SOAP Progress Note Assessment/Plan: Assessment/Plan: 63 yo gentleman w stage IV rectal ca admitted w abdominal pain and hyperbilirubinemia 1. Abd pain - multifactorial from extensive liver mets and pancreatitis improved this morning. ate yesterday and this morning without pain 2. Hyperbilirubinemia - mostly direct from liver mets MRCP shows no areas amenable to stenting, either internally or externally 3. Pancreatitis - assume from large left sided liver mets causing pancreatic ductal dilation, no pain today. 4. Stage IV rectal cancer - pending Y-90 to liver, but currently bili too high had [facility] to look for targeted therapies MSI stable, no BRAF mutations, no OLIVIER mutations documented recently progresses has met w hospice and discussed options 5. Leukocytosis - stable no peritoneal signs today 6. CKD and other medical issues - per IM Subjective: ate this morning, eager for discharge Objective: Vital Signs Temp Pulse Resp BP Pulse Ox 36.6 C 85 16 158/81 H 96 09/26/18 08:00 09/26/18 08:00 09/26/18 08:00 09/26/18 08:00 09/26/18 08:00 Laboratory Results 09/26/18 09:00 09/25/18 09/26/18 09/27/18 05:59 05:59 05:59 Intake Total 5769 763 8699 Output Total 775 275 Balance 483 664 6469 PT 14.9 SEC (12.0-15.0) 09/22/18 22:35 INR 1.15 (0.83-1.16) 09/22/18 22:35 Physical Exam - Physical Exam General Appearance: alert, no apparent distress Respiratory: lungs clear Abdomen: non-tender, soft, distended Extremities: No pedal edema ICD10 Worksheet Patient Problems: Problems Problem Status Onset Abdominal pain Acute Pancreatitis Acute Diabetes Acute Diarrhea due to drug Acute Mucositis due to chemotherapy Acute Rectal cancer Acute SBO (small bowel obstruction) Acute Stented coronary artery Acute
--- NOTE | 2018-09-26 10:27 | PDIAF ---
- Diagnosis Diagnosis: Liver Metastasis Code Status: Full Code - Medication Management Discharge Medications: electronically signed and located in the Home Medication List. - Orders Services needed: Registered Nurse Isolation Type: None - Follow Up Care Current Providers and Referrals: Mando Rodriguez MD [Primary Care Provider] - As per Instructions
[2018-09-26] MEDS ORDERED: HEPARIN PRESERV FREE 1 UNIT/1 ML 5 ML SYR IVP ONE (12:45)
--- NOTE | 2018-09-26 13:37 | PDDCSUM ---
Discharge Summary Discharge Summary: Date of Admission: 09/23/2018 Date of Discharge: 09/26/2018 Consults: Oncology, GI, IR, Hospice Followup: Oncology, Hospice Hospital Course Problem List: 63 yo M w/ hx of metastatic rectal CA, CAD, HTN, and CKD presents with abdominal pain and elevated bilirubin. Plan: 1. Elevated bilirubin - - RUQ U/S shows no ductal dilation, however patient has significant cancer burden with hepatic metastases - Monitor CMP - GI consulted, recommended MRCP which did not show anything stentable per GI - Discussed with oncology, Dr. Armendariz, who recommended consulting IR for possible extrahepatic drain placement, they reviewed images, I discussed with Dr. Mcgill, who does not believe he would be able to place a stent in setting of large metastatic tumor burden 2. Abdominal pain/Pancreatitis - Pancreatitis likely given elevated Lipase to 7000 - Supportive care, now tolerating PO intake well 3. Leukocytosis - Possibly reactive to biliary obstruction. he has no other infectious signs or symptoms at this time. Not enough ascitic fluid present for SBP evaluation. - Blood cultures ordered- NGTD 4. Anemia - H/H 6.9 today, 7's throughout admission - Repeat CBC in next week, transfuse as needed 5. Metastatic rectal CA - With extensive metastases to liver. He was initially diagnosed in 2014 and has had numerous treatment modalities including surgery, chemotherapy, and radiation. He follows with Dr. Mando Rodriguez. - Oncology consulted 6. 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 His GFR is close to his baseline. - Continue Gentle hydration - Monitor BMP, Cr 3.2 from 3.6 on admission - Renally dose medications, avoid nephrotoxic agents 7. CAD - Hx of IN with 4 stents placed. No acute symptoms related to this. 8. HTN - Will hold medication in setting of acute illness, restart as indicated. Time spent on discharge was >35 minutes with >50% of time spent on patient education and counseling
--- NOTE | 2018-09-26 19:16 | ASMTCMCOM ---
CM Note CM Note Notes: CM Note from Thursday09/25/18 - previously documented under notes in [employer] d/t [employer] downtime: Reviewed chart, spoke with Dr. Gonsalez and OITLIA Campos. Pt to potentially discharge home today with [facility]. Per Dr. Gonsalez, pt has been unable to eat or drink for the past few days. Pt discharge contingent on pt's ability to eat/drink and keep food down. Call received from Sandy at [facility] . Per Sandy, Hospice was scheduled to meet with pt and pt's Geraldine at 1400 today, at pt's home. Sandy wishing to confirm 1400 appt. Met with pt and pt's at approximately 12:20 PM to discuss hospice meeting and contingent discharge plans. Pt ambulating in halls with wheelchair assist at time of meeting. Pt's stated that she would like pt to discharge home today. Pt's expressed frustration with pt's care. insistent on pt ambulating frequently, stating "he should be doing so much better than this." Pt denies eating or drinking lunch. Discussed pt's inability to eat quickly and to get home by 1400. Pt wishing not to tavarez eating secondary to prior nausea. Pt also requesting DME such as a walker and hospital bed for discharge. Updates provided to Dr. Gonsalez. Discharge postponed until Thursday09/26/18. Call placed to Sandy at [facility] [[email or web address]]; update provided. Hospice meeting rescheduled for 1400 Thursday09/26/18. Rx obtained from Dr. Gonsalez for a walker and hospital bed. Rx faxed to [facility] [[email or web address]] ; confirmed receipt with Sandy. Rx placed in front of pt's chart.[facility] [[email or web address]] to contact pt's for delivery of DME between [phone] Thursday. Updates provided to pt and OTILIA Campos. CM will continue to follow. Discharge Plan: Home with [facility] [[email or web address]] Hospice Thursday09/26/18 Date Signed: 09/26/2018 07:15 PM Electronically Signed By:Sera Grigsby RN
--- NOTE | 2018-09-26 19:27 | ASDISCHSUM ---
Discharge Information Plan Status:Hospice-Home Medically Cleared to Leave:09/25/2018 Discharge Date:09/26/2018 01:48 PM D/C Disposition:Hospice Home ADT D/C Disposition:Home, Routine, Self-Care Projected Discharge Date:09/24/2018 12:00 AM Transportation at D/C:Family Discharge Delay Reason: Follow-Up Date:09/24/2018 12:00 AM Discharge Slot:2 - 12:01 pm - 18:00 pm Final Diagnosis:Metastatic rectal cancer with mets to liver, pancreatitis, abdominal pain Placement Information Referral Type:*Hospice Referral ID:[id number] Provider Name:[facility] Address 1:[address] Address 2: City:[place] Selection Factors:Patient/Family Choice State:[place] Patient Contact Information Contact Name:WIN Relationship: Address:[address] [place] [address] City:[place] [facility] Phone: State/Zip Code:[place] [address] Email: Financial Information Financial Class:Medicaid Primary Plan Desc:[facility]ICA[employer] [facility] [place] Primary Plan Number:[id number] Secondary Plan Desc: Secondary Plan Number: Assessment Information [facility] CM Progress Note CM Note CM Note Notes: Pt admitted for abdominal pain with a history of rectal cancer, HTN, CAD and CKD. Pt was scheduled for radiation bead placement for liver metastases but was unable to receive due to abnormal labs. Therapies have been ordered but not yet evaluated. Pt lives independently with and CM spoke with her on the phone regarding family's needs. Pt already arranged palliative consult with [facility], so referral was sent to them for hospice consult, per physician recommendation. They will schedule eval for tomorrow at [facility]. D/C Plan: home with [facility] hospice pending eval Date Signed: 09/23/2018 05:20 PM Electronically Signed By:Victorina Quinonez [facility] Progress Note CM Note CM Note Notes: Spoke with pt in the room. Pt and Rocio had a meeting with [facility] hospice RNs to learn about hospice and have opted to open with [facility]. Anticipated discharge 1 -2 days. CM to follow. D/C Plan: [facility] Date Signed: 09/24/2018 03:48 PM Electronically Signed By:Victorina Quinonez [facility] CM Progress Note CM Note CM Note Notes: CM Note from Thursday09/25/18 - previously documented under notes in [employer] d/t [employer] downtime: Reviewed chart, spoke with Dr. Gonsalez and OTILIA Campos. Pt to potentially discharge home today with [facility]. Per Dr. Gonsalez, pt has been unable to eat or drink for the past few days. Pt discharge contingent on pt's ability to eat/drink and keep food down. Call received from Sandy at [facility] . Per Sandy, Hospice was scheduled to meet with pt and pt's Geraldine at 1400 today, at pt's home. Sandy wishing to confirm 1400 appt. Met with pt and pt's at approximately 12:20 PM to discuss hospice meeting and contingent discharge plans. Pt ambulating in halls with wheelchair assist at time of meeting. Pt's stated that she would like pt to discharge home today. Pt's expressed frustration with pt's care. insistent on pt ambulating frequently, stating "he should be doing so much better than this." Pt denies eating or drinking lunch. Discussed pt's inability to eat quickly and to get home by 1400. Pt wishing not to tavarez eating secondary to prior nausea. Pt also requesting DME such as a walker and hospital bed for discharge. Updates provided to Dr. Gonsalez. Discharge postponed until Thursday09/26/18. Call placed to Sandy at [facility]; update provided. Hospice meeting rescheduled for 1400 Thursday09/26/18. Rx obtained from Dr. Gonsalez for a walker and hospital bed. Rx faxed to [facility] ; confirmed receipt with Sandy. Rx placed in front of pt's chart.[facility] to contact pt's for delivery of DME between [phone] Thursday. Updates provided to pt and OTILIA Campos. CM will continue to follow. Discharge Plan: Home with [facility] Hospice Thursday09/26/18 Date Signed: 09/26/2018 07:15 PM Electronically Signed By:Sera Grigsby RN Intervention Information Intervention Type:*Incorrect Registration Date of Service:09/22/2018 10:35 AM Patient Type:Observation Staff Member:Iveth Saenz Hours: Discipline: Severity: Comment:
== END 2018-09-26 13:48 | disposition home or self-care (01) | DRG 282 ==
LOC: INTOOBSV 22:55 → F1N 09-23 01:28 → OBSVTOIN 09-23 16:28
PROVIDERS: ADMIT Student in an Organized Health Care Education/Training Program; ATTEND Student in an Organized Health Care Education/Training Program
DX: K85.90 Acute pancreatitis without necrosis or infection, unspecified (principal); C78.7 Secondary malignant neoplasm of liver and intrahepatic bile duct; E80.6 Other disorders of bilirubin metabolism; D72.829 Elevated white blood cell count, unspecified; N02.8 Recurrent and persistent hematuria with other morphologic changes; N18.9 Chronic kidney disease, unspecified; E11.9 Type 2 diabetes mellitus without complications; I25.10 Atherosclerotic heart disease of native coronary artery without angina pectoris; K59.00 Constipation, unspecified; I25.2 Old myocardial infarction; Z85.048 Personal history of other malignant neoplasm of rectum, rectosigmoid junction, and anus; Z95.5 Presence of coronary angioplasty implant and graft; Z92.3 Personal history of irradiation; Z96.651 Presence of right artificial knee joint
CPT/HCPCS: 96374; 97161-GP; G0378; G8978-GP-CI; G8979-GP-CI; G8980-GP-CI; J1170; J1642; J1644; J2405